=== PATIENT | female | born 1965 | race African-American/Black ===

== ENCOUNTER 2017-05-24 07:50 | Day surgery (SDC) | payer OTHER ==
[2017-05-23 13:39] VITALS: BMI 38.5
[2017-05-24] MEDS ORDERED: PROPOFOL 20 ML ONE (08:27)
[2017-05-24 09:44] VITALS: PULSE 77
[2017-05-24 13:08] VITALS: BP 144/80; TEMP 98.7
== END 2017-05-24 12:35 | disposition home or self-care (01) ==
LOC: JASU-ENDO 07:50
PROVIDERS: ATTEND Surgery
PROC: 0DJ08ZZ Inspection of Upper Intestinal Tract, Via Natural or Artificial Opening Endoscopic (ICD-10-PCS; principal; 2017-05-24 08:00)
DX: E66.9 Obesity, unspecified (principal); Z98.84 Bariatric surgery status